=== PATIENT | male | born 1970 | race Caucasian/White ===

== ENCOUNTER 2020-06-26 10:58 | Inpatient (IN) ==
[2020-06-26 12:41] LABS: Basophils # 0.1 10*3/uL (0.0-0.2); Basophils % 0.4 % (0.0-0.8); Eosinophils # 0.2 10*3/uL (0.0-0.87); Eosinophils % 1.7 % (0.00-10.9); Hematocrit 41.5 VOL% (42.0-52.0); Hemoglobin 14.3 GM/DL (14.0-18.0); Immature Granulocytes % 0.8 %; Lymphocytes # 2.2 10*3/uL (1.4-4.0); Lymphocytes % 17.8 % (21.2-54.2); Mean Corpuscular HGB Conc 34.5 GM/DL (32-36); Mean Corpuscular Volume 85.2 FL (87-102); Mean Platelet Volume 9.5 FL (9.6-12.0); Monocytes % 6.7 % (1.7-12.7); Neutrophils % 72.6 % (38.7-73.9); Platelet Count 311 T/CUMM (130-400); Red Blood Count 4.87 MC/CUMM (3.8-5.5); Red Cell Distribution Width 12.8 % (9.3-17.3); White Blood Count 12.1 T/CUMM (4-12)
[2020-06-26] MEDS ORDERED: LEVOFLOXACIN INJ 500 MG in PREMIX 1 EACH IV ONE (13:26)
[2020-06-26] MEDS ORDERED: metroNIDAZOLE INJ 500 MG in PREMIX 1 EACH IV ONE (13:26)
[2020-06-26 13:40] LABS: Alanine Aminotransferase 22 U/L (16-61); Albumin 3.4 G/DL (3.4-5.0); Alkaline Phosphatase 128 U/L (45-117); Aspartate Amino Transferase 14 U/L (0-37); Blood Urea Nitrogen 9 MG/DL (7-18); Calcium 9.2 MG/DL (8.5-10.1); Estimated Glom Filtration Rate 131 ML/MIN; Glucose 196 MG/DL (74-106); Osmolality,Calculated 276.8 MOS/KG (273-304); Total Protein 8.3 G/DL (6.4-8.3)
[2020-06-26] MEDS: ENOXAPARIN 40 MG/0.4 ML SYRINGE SUBCUT SCH (14:07)
[2020-06-26] MEDS ORDERED: LIDOCAINE 1% 20 ML VIAL ONE (15:48)
[2020-06-26] MEDS ORDERED: propofoL 200 MG/20 ML VIAL IV ONE (15:57)
[2020-06-26] MEDS ORDERED: LIDOCAINE 2% 5 ML VIAL ONE (15:57)
[2020-06-26] MEDS ORDERED: fentaNYL 100 MCG/2 ML VIAL ONE (15:58)
[2020-06-26] MEDS ORDERED: MIDAZOLAM 2 MG/2 ML VIAL ONE (15:58)
[2020-06-26] MEDS ORDERED: KETAMINE 500 MG/10 ML VIAL ONE (15:58)
[2020-06-26] MEDS ORDERED: DEXTROSE 50% 25 GM/50 ML VIAL IV PRN ×2 (16:51→16:56)
[2020-06-26] MEDS ORDERED: GLUCAGON 1 MG VIAL IM PRN (16:51)
[2020-06-26] MEDS ORDERED: LACTATED RINGERS 1,000 ML IV ONE (17:06)
[2020-06-26] MEDS ORDERED: MEPERIDINE 25 MG/1 ML VIAL IV PRN (17:10)
[2020-06-26] MEDS ORDERED: ONDANSETRON 4 MG/2 ML VIAL IV PRN (17:10)
[2020-06-26] MEDS: ROSUVASTATIN 10 MG TABLET PO SCH (22:50)
[2020-06-26] MEDS: carvediloL 6.25 MG TABLET PO SCH (22:51)
[2020-06-26] MEDS: INSULIN REGULAR 100 UNIT/ML SUBCUT SCH (22:52)
[2020-06-26] MEDS: metroNIDAZOLE INJ 500 MG in PREMIX 1 EACH IV SCH (23:08)
[2020-06-27 05:51] LABS: Basophils # 0.1 10*3/uL (0.0-0.2); Basophils % 0.4 % (0.0-0.8); Eosinophils # 0.3 10*3/uL (0.0-0.87); Eosinophils % 2.5 % (0.00-10.9); Hematocrit 37.8 VOL% (42.0-52.0); Hemoglobin 13.2 GM/DL (14.0-18.0); Immature Granulocytes % 0.6 %; Immature Granulocytes Absolute 0.08 #; Lymphocytes % 24.2 % (21.2-54.2); Mean Corpuscular HGB Conc 34.9 GM/DL (32-36); Mean Corpuscular Volume 84.8 FL (87-102); Mean Platelet Volume 9.7 FL (9.6-12.0); Monocytes % 8.9 % (1.7-12.7); Neutrophils % 63.4 % (38.7-73.9); Platelet Count 310 T/CUMM (130-400); Red Blood Count 4.46 MC/CUMM (3.8-5.5); Red Cell Distribution Width 12.6 % (9.3-17.3); White Blood Count 12.5 T/CUMM (4-12)
[2020-06-27 06:20] LABS: Calcium 8.8 MG/DL (8.5-10.1)
[2020-06-27] MEDS: metroNIDAZOLE INJ 500 MG in PREMIX 1 EACH IV SCH ×3 (06:44→22:32)
[2020-06-27] MEDS: INSULIN REGULAR 100 UNIT/ML SUBCUT SCH ×4 (09:15→20:32)
[2020-06-27] MEDS: ASPIRIN EC 81 MG TABLET PO SCH (09:25)
[2020-06-27] MEDS: carvediloL 6.25 MG TABLET PO SCH ×2 (09:25→20:25)
[2020-06-27] MEDS: PANTOPRAZOLE 40 MG TABLET PO SCH (09:25)
[2020-06-27] MEDS: MORPHINE 4 MG/1 ML VIAL IV PRN ×2 (10:05→20:25)
[2020-06-27] MEDS ORDERED: LEVOFLOXACIN INJ 500 MG in PREMIX 1 EACH IV SCH (10:55)
[2020-06-27] MEDS: ENOXAPARIN 40 MG/0.4 ML SYRINGE SUBCUT SCH (15:13)
[2020-06-27] MEDS: ROSUVASTATIN 10 MG TABLET PO SCH (20:25)
[2020-06-28] MEDS: metroNIDAZOLE INJ 500 MG in PREMIX 1 EACH IV SCH (06:24)
[2020-06-28] MEDS: ASPIRIN EC 81 MG TABLET PO SCH (09:31)
[2020-06-28] MEDS: carvediloL 6.25 MG TABLET PO SCH (09:31)
[2020-06-28] MEDS: PANTOPRAZOLE 40 MG TABLET PO SCH (09:31)
[2020-06-28] MEDS: INSULIN REGULAR 100 UNIT/ML SUBCUT SCH ×2 (09:32→12:03)
[2020-06-28] MEDS: MORPHINE 4 MG/1 ML VIAL IV PRN (09:44)
[2020-06-28] MEDS ORDERED: LEVOFLOXACIN 750 MG TABLET PO SCH (10:00)
[2020-06-28 12:06] VITALS: BP 151/82
[2020-06-28] MEDS: ENOXAPARIN 40 MG/0.4 ML SYRINGE SUBCUT SCH (14:25)
== END 2020-06-28 15:04 | disposition home or self-care (01) | DRG 240 ==
LOC: N.ED 10:58 → N.EDINP 16:51 → N.3E 18:02
PROVIDERS: ADMIT Surgery; ATTEND Surgery